=== PATIENT | female | born 1995 | race Caucasian/White ===

== ENCOUNTER → 2022-11-23 11:51 | Outpatient (CLI) | payer OTHER, SELFPAY ==
--- NOTE | ~2022-11-23 | US_ITS ---
EXAMINATION: US OB /maternal detail DATE: 11/23/2022 12:32 INDICATION: anatomy scan during TECHNIQUE: Multiple obstetric sonographic images performed. FINDINGS: There is a single living fetus in vertex presentation. The placenta is anterior and not low-lying wi th caudal margin 5.6 cm from the internal cervical os. Normal cervical length of 4.9 cm. Amniotic flu id volume is subjectively normal. heart rate of 155 beats per minute. The following anatomy was identified as normal: Ventricles, choroid plexus, falx and cava septum pellucidum Cerebellum and cisterna magna Nuchal fold Upper lip Spine Heart Diaphragm Stomach Kidneys Bladder 3 vessel cord and cord insertion Bilateral upper and lower extremities including hands and feet The following biometric data were obtained: BPD: 5.4 cm -> 22 weeks 2 days Head circumference: 20.0 cm -> 22 weeks 1 days Abdominal circumference: 16.2 cm -> 21 weeks 2 days Femur length: 3.6 cm -> 21 weeks 2 days These measurements are concordant. Head circumference to abdominal circumference ratio: 1.23 (normal range 1.06-1.24). Estimated weight: 420 g (+/-) 63 g. or 15 oz. (+/-) 2 oz. IMPRESSION: 1. Single living fetus with vertex presentation with heart rate of 153 bpm. 2. Gestational age by ultrasound of 21 weeks 5 day(s) (+/-) 1 week 4 day(s) with ultrasound estimat ed date of delivery ([facility]UAN FRANCISCO) of 03/31/2023. Estimated weight is 81st percentile by Hadlock criteria when 04/07/2023 is used as the JUAN FRANCISCO. Please correlate with clinical information or earlier ultrasounds for most accurate JUAN FRANCISCO. 3. Normal survey. Reviewed, dictated and finalized at location A. IMPRESSION: 1. Single living fetus with vertex presentation with heart rate of 153 b pm. 2. Gestational age by ultrasound of 21 weeks 5 day(s) (+/-) 1 week 4 day(s) w ith ultrasound estimated date of delivery (JUAN FRANCISCO) of 03/31/2023. Estimated w eight is 81st percentile by Hadlock criteria when 04/07/2023 is used as the JUAN FRANCISCO. Please correlate with clinical information or earlier ultrasounds for most acc urate JUAN FRANCISCO. 3. Normal survey.
== END ==
PROVIDERS: PCP Advanced Practice Midwife; Visit Provider Advanced Practice Midwife
DX: Z34.90 Encounter for supervision of normal pregnancy, unspecified, unspecified trimester (principal)
CPT/HCPCS: 76805

== ENCOUNTER 2023-02-24 15:33 | Outpatient (CLI) | payer OTHER, SELFPAY ==
--- NOTE | ~2023-02-24 | US_ITS ---
EXAMINATION: US OB follow up DATE: 02/24/2023 15:59 INDICATION: Size greater than dates. TECHNIQUE: Real-time ultrasound of the pelvis was performed. COMPARISON: Ultrasound 11/23/2022 FINDINGS: There is a single living fetus in vertex presentation. The placenta is anterior. heart rate is 132 beats per minute (bpm). The cervical length is 2.2 cm on transabdominal images. The amniotic flu id index is 18.0 cm, which is normal. The following biometric data were obtained: Biparietal diameter (BPD): 9.2 cm; head circumference (HC): 34.3 cm; abdominal circumference (AC): 31 .9 cm; femur length (FL): 6.8 cm. These measurements are discordant with high HC/AC. Estimated weight is 2860 g +/- 429 g, which correlates with the 95th percentile when 04/07/23 is used as estimated date of delivery. As single measurements, these parameters are each equal to the following estimated gestational ages: BPD: 37 weeks 1 days. HC: 39 weeks 4 days. AC: 35 weeks 6 days. FL: 35 weeks 0 days. estimated gestational age based solely on measurements from this exam is 36 weeks 6 days +/- 2 weeks 4 days. IMPRESSION: 1. Single living fetus in vertex presentation. 2. Large for gestational age. Estimated weight is 2860 g +/- 429 g, which correlates with the 95th percentile when 04/07/23 is used as estimated date of delivery. 3. Discordant biometrics with high HC/AC ratio. 4. Short cervical length measuring 2.2 cm on transabdominal images. Reviewed, dictated and finalized at location A. IMPRESSION: 1. Single living fetus in vertex presentation. 2. Large for gestational age. Estimated weight is 2860 g +/- 429 g, whic h correlates with the 95th percentile when 04/07/23 is used as estimated date of delivery. 3. Discordant biometrics with high HC/AC ratio. 4. Short cervical length measuring 2.2 cm on transabdominal images.
== END 2023-02-24 15:34 ==
PROVIDERS: PCP Advanced Practice Midwife; Visit Provider Advanced Practice Midwife
DX: O36.63X0 Maternal care for excessive fetal growth, third trimester, not applicable or unspecified (principal)
CPT/HCPCS: 76816

== ENCOUNTER 2023-04-06 16:28 | Inpatient (IN) | payer OTHER, SELFPAY ==
[2023-04-06] VITALS (86 sets, daily range): BP systolic 87–166; BP diastolic 38–108; PULSE 82–167; TEMP 36.2–36.8; O2SAT 95–100; BMI 28.6
[2023-04-06 17:41] LABS: Basophils Absolute Auto 0.1 K/mm3 (0.0-0.1); Basophils Percent Auto 0.3 % (0.2-1.2); Eosinophils Absolute Auto 0.1 K/mm3 (0-0.3); Eosinophils Percent Auto 0.7 % (0-4.4); Hematocrit 39.1 % (37.0-47.0); Hemoglobin 12.9 g/dL (12.0-15.0); Immature Granulocyte Absolute 0.15 K/mm3 (0.00-0.031); Lymphocytes Absolute Auto 1.52 K/mm3 (0.9-3.2); Lymphocytes Percent Auto 9.7 % (18.3-44.2); Mean Corpuscular Volume 90.9 fl (80-100); Mean Platelet Volume 8.5 fl (7.4-10.4); Monocytes Absolute Auto 1.1 K/mm3 (0.1-0.6); Monocytes Percent Auto 6.9 % (2.6-8.5); Neutrophils Absolute Auto 12.8 K/mm3 (1.3-6.7); Neutrophils Percent Auto 81.4 % (45.5-73.1); Platelet Count Result 281 k/mm3 (150-375); Red Cell Distribution Width 13.7 % (11.5-14.5); White Blood Count 15.7 K/mm3 (4.5-10.0)
[2023-04-06] MEDS: LACTATED RINGERS 1,000 ML 125 ML IV CONT ×2 (19:05→20:05)
--- NOTE | 2023-04-06 19:47 | WPDANESEPPF ---
Anes - Initial Pre Proc Eval Procedure: Labor Epidural Date/Time: 04/06/23 19:47 Surgeon: Nila Sal MD Pre Op Diagnosis: Labor pain Pre Op Diagnosis: water broke/labor Patient Data Age: 27 Gender: F Height: 1.7 m Weight: 83 kg Last Vital Signs Temp 36.4 C 04/06/23 16:40 Pulse 88 04/06/23 19:31 BP 166/83 H 04/06/23 19:31 O2 Del Method Room Air 04/06/23 17:31 Allergies Allergy/AdvReac Type Severity Reaction Status Date / Time No Known Allergies Allergy Verified 03/10/23 12:31 Home Medications Medication Instructions Recorded Confirmed Type cholecalciferol (vitamin D3) 1,250 1,250 mcg PO WEEKLY 03/10/23 03/10/23 History mcg (50,000 unit) tablet prenat.vits,jennifer,yni-njea-dvrek 1 tablet PO QAM 03/10/23 04/06/23 History Laboratory Tests 04/06/23 17:28 WBC 15.7 H K/mm3 (4.5-10.0) RBC 4.30 M/mm3 (4.2-5.4) Hgb 12.9 g/dL (12.0-15.0) Hct 39.1 % (37.0-47.0) MCV 90.9 fl (80-100) MCH 30.0 pg (26-34) MCHC 33.0 g/dl (32-36) RDW 13.7 % (11.5-14.5) Plt Count 281 k/mm3 (150-375) MPV 8.5 fl (7.4-10.4) Immature Gran % (Auto) 1.0 H % (0-0.5) Neut % (Auto) 81.4 H % (45.5-73.1) Lymph % (Auto) 9.7 L % (18.3-44.2) [place] % (Auto) 6.9 % (2.6-8.5) Eos % (Auto) 0.7 % (0-4.4) Baso % (Auto) 0.3 % (0.2-1.2) Lymph # (Auto) 1.52 K/mm3 (0.9-3.2) [place] # (Auto) 1.1 H K/mm3 (0.1-0.6) Eos # (Auto) 0.1 K/mm3 (0-0.3) Baso # (Auto) 0.1 K/mm3 (0.0-0.1) Abs Immat Gran (auto) 0.15 H K/mm3 (0.00-0.031) Absolute Neuts (auto) 12.8 H K/mm3 (1.3-6.7) Absolute Nucleated RBC 0.0 K/mm3 (0.0-0.012) Nucleated RBC % 0.0 % (0.0-0.2) Blood Type O Positive Antibody Screen Negative Patient hx anesthesia problems: none Family hx anesthesia problems: none Results Review: All pre-operative results and documents have been reviewed as part of the pre-operative evaluation. [facility] Family History Family History Other Patient denies significant medical history Social History Social History Smoking status: Never smoker Substance use: never Lack of Transportation: No Lack of Food: Never True Current Housing: I Have Housing Concerned About Future Housing: No Difficulty Paying Gas/Electric Bills: No Difficulty Paying for Meds: No Currently Unemployed: No Education: Bachelor's Degree Difficulty w/ Childcare or Family Care: No Spiritual care concerns: No Anes - Eval Final PreProcedure Day of Procedure 04/06/23 19:47 Patient weight: normal Heart: regular rate and rhythm Neurological: alert and oriented ASA classification: II Anesthetic plan: proceed Anesthesia type and monitoring: regional epidural and standard monitoring Results Review: All pre-operative results and documents have been reviewed as part of the pre-operative evaluation. Informed Consent: The patient's anesthetic plan and its attendant risks and benefits were discussed with the patient/family/POA. Questions were solicited and answers provided to the satisfaction of the patient/family/POA.
--- NOTE | 2023-04-06 20:13 | WPDANESEPN ---
Anes - Epidural Procedure Note Date/Time: 04/06/23 20:13 Consent: I have discussed with the patient/family/POA, the placement of an epidural catheter and the use of epidural narcotic/local anesthetic for labor analgesia and/or postoperative pain management, including associated potential risks, benefits, complications and side effects. I have discussed alternative methods of labor analgesia and/or postoperative pain management. The patient/family/POA, understand(s) and wish(es) to proceed with epidural narcotic/local anesthetic for labor analgesia and/or postoperative pain management. Time-Out: A pre-procedural Time-Out was completed immediately before starting the procedure and confirmed: Patient Identification, Site, Procedure, Patient Position and the Availability of Requisite Equipment. Clinical Indications: Labor pain Epidural Insertion Note Patient position: sitting Skin prep: chlorhexidine and sterile drape Needle: 18g Tuohy-Schliff Catheter: 20g Unstyleted Technique: Loss of resistance. Level of insertion: L3/4 Catheter skin sabrina (cm): 10 Length in epidural space (cm): 5 Skin anesthesia: lidocaine 1% Test dose: 1.5% Lidocaine with 1:[id number] Epi, negative for subarachnoid Inj and negative for intravascular Inj Time of test dose: 20:03 Observations: tolerated well Complications: none
[2023-04-06] MEDS: OXYTOCIN 30 UNITS/NS 500 ML 30 UNITS/500 ML BAG 999 UNITS IV CONT (22:40)
[2023-04-06] MEDS: OXYTOCIN 30 UNITS/NS 500 ML 30 UNITS/500 ML BAG 125 UNITS IV CONT (23:18)
[2023-04-06] MEDS: LACTATED RINGERS 1,000 ML 999 ML IV CONT (23:27)
[2023-04-06] MEDS: miSOPROStol 200 MCG TABLET 800 MCG (23:29)
--- NOTE | 2023-04-06 23:47 | WPDOBADMIT ---
Obstetrics - Admit Note Admission Note: record reviewed. No pertinent additions to the history and/or any subsequent changes in the physical findings that are not consistent with the expected course of the were found. Additions to the history and/or subsequent changes in the physical findings follow. Pt admitted after SROM. SVE 5cm. Feeling regular, painful contractions.
--- NOTE | 2023-04-06 23:48 | P.PCNOB_ITS ---
OB - Delivery Note Procedure Delivery date: 04/06/23 Procedure: Events: Other (LGA. ) Induction method: None Delivery monitor: External FHT and External Uterine Route of delivery: Episiotomy description: None Laceration Description: Vaginal (first degree) and Labial (right labial- superficial, left labial 1st degree repaired. ) Delivery repair: vicryl Specimen: Yes (placenta) Quantitative Blood Loss (ml): 1,220 Anesthesia type: Epidural Disposition: Floor Narrative: patient arrived in active labor with spontaneous rupture of membranes. She is found to be 5 cm. She was given an epidural for pain control and quickly progressed to complete dilation. She pushed very well with contractions brought the head to complete crown. She deliver the head over an intact perineum there was excellent restitution and she easily delivered both shoulders and the remainder of the . The was placed on the maternal abdomen and dried and stimulated by the nursery staff. After 1 minute of life, the cord was doubly clamped and cut. Cord blood, cord gases, and cord segment were obtained. A first-degree vaginal laceration was repaired prior to the delivery of the placenta. After the delivery of the placenta, vaginal bleeding was brisk. The uterus remained firm. The vagina and cervix were inspected and a cervical laceration was noted. Firm pressure was applied directly to the cervix for 3 minutes. When the pressure was removed, the bleeding once again was noted to be brisk. Dr. Sal was called to come to the hospital. Vaginal packing was inserted into the vagina and continuous pressure applied to the cervical laceration while Dr. Sal was in route. MD to patient room and vaginal packing removed. The cervix was inspected by Dr. Sal. Some small clots were removed from the lower uterine segment. Rectal Cytotec 800 mcg was administered. MD repaired the left labial laceration in the usual fashion. the cervix was again inspected and the bleeding slowed. No further repair performed. Mother and infant skin to skin in the delivery room. All delivery counts were correct. [place] Baby Date of : 04/06/23 Time of : 22:35 Weeks of gestation at delivery: 39 gender: Male Weight (pounds): 10 Weight (ounces): 11 presentation: vertex position: Left Occiput Anterior Placenta delivery description: Spontaneous Cord Vessel Description: 3 Vessels, Clamped/Cut and Delayed Cord Clamping score one minute: 8 score five minutes: 9
[2023-04-07] VITALS (36 sets, daily range): BP systolic 107–133; BP diastolic 61–85; PULSE 75–111; RESP 16–18; TEMP 36.4–37.4; O2SAT 99–100
--- NOTE | 2023-04-07 00:01 | PM.OBDSVD ---
DS: Admitting Diagnosis Discharge Date 04/09/23 Admitting Diagnosis 27 y.o. Labor at term LGA fetus DS: Discharge Diagnosis Discharge Diagnosis (1) (normal spontaneous vaginal delivery): Code(s): O80 - Encounter for full-term uncomplicated delivery Status: Acute (2) Patient is a currently breast-feeding mother: Code(s): Z39.1 - Encounter for care and examination of lactating mother Status: Acute (3) Cervical laceration: Qualifiers: Encounter type: initial encounter Qualified Code(s): S37.63XA - Laceration of uterus, initial encounter Code(s): S37.63XA - Laceration of uterus, initial encounter Status: Acute OB - DS: Summary Hospital Course Hospital Course: Uncomplicated OB Procedures : Ultrasound OB Procedures Intrapartum: Spontaneous Vag Delivery OB Procedures: : None Peripartum Data Infant Delivery Method: Natural Vaginal Laceration Description: Vaginal - 1st Degree, Cervical and Labial Episiotomy description: None complications: none Status at Discharge Functional status at discharge: independent ambulation Overall status at discharge: patient is progressing back to baseline Time Spent with Patient Time attestation: Total time spent providing and/or coordinating discharge services: Exam Narrative: Alert and oriented. Mood is pleasant and cooperative. Perineum with minimal edema. Fundus firm and below umbilicus. Const: General: cooperative, healthy appearing, no acute distress and alert Orientation/consciousness: patient oriented x3 Limitations: no limitations Resp: Effort & Inspection: normal respiratory effort and able to speak in complete sentences Auscultation: clear to auscultation bilaterally Cardio: Rate: regular rate GI: Inspection: normal to inspection Auscultation: normal bowel sounds : General: Yes bladder normal to palpation Bimanual exam- vagina & uterus: bladder normal to palpation OB/external & speculum: vaginal bleeding (small. WNL) Other: Fundus firm and below U Skin: General skin exam: normal color and no rashes or lesions noted Neuro: General: patient oriented x3 and moves all extremities Cognition (Neuro): normal cognition Extrem: General: normal to inspection and no calf tenderness Psych: Appearance: grossly normal Mental Status: mental status grossly normal Affect: normal affect Thought process: Normal thought process present DS: Data Data Completed and Pending Labs on day of discharge: Labs from last 24 hours 04/06/23 17:28 WBC 15.7 H RBC 4.30 Hgb 12.9 Hct 39.1 MCV 90.9 MCH 30.0 MCHC 33.0 RDW 13.7 Plt Count 281 MPV 8.5 Immature Gran % (Auto) 1.0 H Neut % (Auto) 81.4 H Lymph % (Auto) 9.7 L [place] % (Auto) 6.9 Eos % (Auto) 0.7 Baso % (Auto) 0.3 Lymph # (Auto) 1.52 [place] # (Auto) 1.1 H Eos # (Auto) 0.1 Baso # (Auto) 0.1 Abs Immat Gran (auto) 0.15 H Absolute Neuts (auto) 12.8 H Absolute Nucleated RBC 0.0 Nucleated RBC % 0.0 Blood Type O Positive Antibody Screen Negative Discharge Plan Discharge Attending physician on discharge: Nila Sal Discharging Clinician: Carlene Shearer Anticipated Discharge Date/Time: 04/08/23 11:00 Patient Disposition: Home, Self-Care Activity: may shower Diet: as tolerated Wound Care Instructions: follow printed instructions Discharge Instructions: Continue taking your vitamin and any other supplements as previously directed (Examples: Iron, Vitamin D). You may take Tylenol 1000mg over the counter every 6 hours as needed for pain. Do not exceed 4000mg of Tylenol daily. You may continue using tucks pads and dermoplast spray if needed for a few more days. Patient Instructions: Antibiotic Form Stand Alone Forms: General Discharge Information Follow-up/Referrals: Carlene Shearer, ADELITAM [Certified Nurse Evidence Technician] - (6 weeks ) Discharge [facility]
[2023-04-07] MEDS: SODIUM CHLORIDE 0.9% IV 500 ML 250 ML IV CONT (02:24)
--- NOTE | 2023-04-07 03:32 | OBPPTRN ---
Patient transferred to post room #291 via wheelchair. Support person present. Oriented to unit, room, information board, rooming in, admission packet and security measures. Patient verbalizes understanding.
--- NOTE | 2023-04-07 06:30 | PC.NURSE ---
PT introductions made and plan of care discussed per post , pain management, breast feeding, daily care activities. PT and spouse both recipients of such care and no barriers to learning identified at this time. PT received such care via one to one discussion, mom baby care guide and demonstrations this shift. Pt verbalized understanding of such care.
--- NOTE | 2023-04-07 09:01 | WPDANLDPN2 ---
Anes-Prog Note L&D Date/Time: 04/07/23 09:01 Comfortable throughout: labor and delivery Neuraxial method: epidural Epidural/Spinal procedure site: clean & non-tender Neuro status: Neuro function grossly intact. Cardiovascular status: normal Respiratory status: normal Airway patency: baseline Mental status: baseline Post-Op hydration status: normal Vital Signs: Last Vital Signs Temp 36.4 C 04/07/23 03:50 Pulse 85 04/07/23 03:50 Resp 18 04/07/23 03:50 BP 113/72 04/07/23 03:50 Pulse Ox 100 04/07/23 03:50 O2 Del Method Room Air 04/06/23 17:31 Pain score (VAS): 2/10 I/O: Intake & Output 04/06/23 04/07/23 04/07/23 23:59 07:59 15:59 Intake Total 2500 Output Total 1920 173 Balance 580 -173 Post-procedural complaints: none Patient feedback: Patient satisfied with anesthetic care.
[2023-04-07] MEDS: IBUPROFEN 600 MG TABLET PO ×2 (09:42→17:47)
[2023-04-07] MEDS: MULTIVIT/MIN/PREN/FOL AC/IRON TABLET 1 TAB PO (09:42)
[2023-04-07] MEDS: DOCUSATE SODIUM 100 MG CAPSULE PO ×2 (09:42→17:47)
[2023-04-07] MEDS: ERGOCALCIFEROL 50,000 UNITS CAPSULE 50000 UNITS PO (09:43)
[2023-04-07] MEDS: POLYSACCHARIDE IRON COMPLEX 150 MG CAPSULE PO (09:43)
--- NOTE | 2023-04-07 12:09 | P.PNOB_ITS ---
OB - PN: Subj Subjective Date/time seen: 04/07/23 12:09 Patient comments: no complaints and pain well controlled baby status: doing well OB - PN: Obj Data Labs 04/06/23 17:28 Labs: Laboratory Results - last 24 hr 04/06/23 17:28 WBC 15.7 H RBC 4.30 Hgb 12.9 Hct 39.1 MCV 90.9 MCH 30.0 MCHC 33.0 RDW 13.7 Plt Count 281 MPV 8.5 Immature Gran % (Auto) 1.0 H Neut % (Auto) 81.4 H Lymph % (Auto) 9.7 L [place] % (Auto) 6.9 Eos % (Auto) 0.7 Baso % (Auto) 0.3 Lymph # (Auto) 1.52 [place] # (Auto) 1.1 H Eos # (Auto) 0.1 Baso # (Auto) 0.1 Abs Immat Gran (auto) 0.15 H Absolute Neuts (auto) 12.8 H Absolute Nucleated RBC 0.0 Nucleated RBC % 0.0 Blood Type O Positive Antibody Screen Negative OB - PN A/P Plan day: 1 Plan: routine care Comments: H/H tomorrow normal bleeding throughout night Time Spent With Patient Time: Total time spent is greater than 50% in coordination of care (as documented) at patient's floor/unit and/or counseling patient: Exam : Bimanual exam- vagina & uterus: other (Uterus firm, nt @U)
[2023-04-07] MEDS: LANOLIN (LANSINOH) 7.5 GM CREAM 1 APPLIC TOPICAL (12:35)
--- NOTE | 2023-04-07 14:41 | PC.NURSE ---
[id number] Introductions were made, then consulted with patient to assess needs related to . Mother led the conversation with her?plans to feed?her infant and the?experience so far. Resources provided for inpatient and outpatient services with name written on the white board. Mother voiced understanding of information and will call if there is a request for assistance. Reported to the primary RN.
[2023-04-07 15:39] LABS: Rapid Plasma Reagin Non-Reactive (NonReactive)
[2023-04-08 05:16] LABS: Hematocrit 28.3 % (37.0-47.0); Hemoglobin 9.2 g/dL (12.0-15.0)
--- NOTE | 2023-04-08 07:31 | P.PNOB_ITS ---
OB - PN: Subj Subjective Date/time seen: 04/08/23 07:20 Interval history: Doing well. Urinating without difficulty. Denies passing any large clots. Denies dizziness with ambulating. Was slightly lightheaded once when up and ambulating for longer period of time. Tolerating po food an fluids. Bonding with infant. Patient comments: no complaints and pain well controlled [place] baby status: doing well and nursing well [place] feeding status: exclusively breast feeding OB - PN: Obj Data Labs 04/08/23 04:24 Labs: Laboratory Results - last 24 hr 04/06/23 04/08/23 17:28 04:24 Hgb 9.2 L D Hct 28.3 L RPR Non-reactive OB - PN A/P Assessment and Plan (1) (normal spontaneous vaginal delivery): Code(s): O80 - Encounter for full-term uncomplicated delivery Status: Acute (2) Patient is a currently breast-feeding mother: Code(s): Z39.1 - Encounter for care and examination of lactating mother Status: Acute (3) Cervical laceration: Qualifiers: Encounter type: initial encounter Qualified Code(s): S37.63XA - Laceration of uterus, initial encounter Code(s): S37.63XA - Laceration of uterus, initial encounter Status: Acute Plan day: 2 Plan: routine care and discharge home Time Spent With Patient Time: Total time spent is greater than 50% in coordination of care (as documented) at patient's floor/unit and/or counseling patient: Review of Systems Review of Systems: All systems reviewed & are unremarkable except as noted in HPI and below Exam Narrative: Alert and oriented. Mood is pleasant and cooperative. Perineum with minimal edema. Fundus firm and below umbilicus. Const: General: cooperative, healthy appearing, no acute distress and alert Orientation/consciousness: patient oriented x3 Limitations: no limitations Resp: Effort & Inspection: normal respiratory effort and able to speak in complete sentences Auscultation: clear to auscultation bilaterally Cardio: Rate: regular rate GI: Inspection: normal to inspection Auscultation: normal bowel sounds : General: Yes bladder normal to palpation Bimanual exam- vagina & uterus: bladder normal to palpation OB/external & speculum: vaginal bleeding (small. WNL) Other: Fundus firm and below U Skin: General skin exam: normal color and no rashes or lesions noted Neuro: General: patient oriented x3 and moves all extremities Cognition (Neuro): normal cognition Extrem: General: normal to inspection and no calf tenderness Psych: Appearance: grossly normal Mental Status: mental status grossly normal Affect: normal affect Thought process: Normal thought process present
[2023-04-08] MEDS: IBUPROFEN 600 MG TABLET PO (07:33)
[2023-04-08] MEDS: DOCUSATE SODIUM 100 MG CAPSULE PO (07:34)
[2023-04-08] MEDS: POLYSACCHARIDE IRON COMPLEX 150 MG CAPSULE PO (07:34)
[2023-04-08] MEDS: MULTIVIT/MIN/PREN/FOL AC/IRON TABLET 1 TAB PO (07:35)
[2023-04-08 08:35] VITALS: BP 125/83; PULSE 96; RESP 16; TEMP 36.6; O2SAT 100
--- NOTE | 2023-04-08 12:16 | PC.NURSE ---
[id number] Mother led the conversation with her experience and plan to feed her so far and demonstrated her ability to independently latch optimally without discomfort. Reminded parents to use good handwashing technique to prevent infection. Mother is feeding appropriately for growth of infant and understands stimulating to eat if needed. has had appropriate feedings in the last 24 hours meets the outcomes for weight, output and jaundice at this time. Mother states she is confident to continue effectively her at home, when to call for assistance and denies any additional assistance or education at this time. Reinforced understanding of milk production, transition of milk, signs of adequate intake, transition of stool, prevention/relief of engorgement, plugged ducts, mastitis, responsive watching for feeding cues, feeding on demand, community resources and when to call a provider using the resource of the mom and baby guide. Mother voiced understanding of the education shared.
[2023-04-09 11:28] VITALS: BP 136/89; PULSE 105; RESP 18; TEMP 37.2; O2SAT 100
== END 2023-04-08 11:40 | disposition home or self-care (01) | DRG 807 ==
LOC: ANHLDR 04-07 00:05 → ANHOB2 04-07 03:35
PROVIDERS: Advanced Practice Midwife; Admitting Provider Obstetrics & Gynecology Gynecology; Visit Provider Obstetrics & Gynecology Gynecology
DX: O36.63X0 Maternal care for excessive fetal growth, third trimester, not applicable or unspecified (principal); Z37.0 Single live birth; Z3A.39 39 weeks gestation of pregnancy; O70.0 First degree perineal laceration during delivery
CPT/HCPCS: 36415; 84112; 85014; 85018; 85025; 86592; 86850; 86900; 86901; 88307; A9270; J2590; J2795; J7040; J7120